=== PATIENT | female | born 1955 | race Caucasian/White ===

== ENCOUNTER 2018-06-09 15:03 | Outpatient (CLI) | payer OTHER ==
[~2018-06-09 15:03] MED LIST: IBUP1TAB11 PO; none per pt
== END 2018-06-09 23:59 | disposition home or self-care (01) ==
LOC: CFH 15:03
PROVIDERS: ATTEND Orthopaedic Surgery
DX: M25.532 Pain in left wrist (principal); R22.32 Localized swelling, mass and lump, left upper limb; M25.742 Osteophyte, left hand